=== PATIENT | male | born 1980 | race Caucasian/White ===

== ENCOUNTER → 2017-10-26 10:10 | Outpatient (CLI) | payer MEDICAID ==
[~2017-10-26 10:10] MED LIST: BUPRENORPHIN-N1 EACH SL; PEPCID40 MG PO
[2017-11-02 07:35] VITALS: BMI 33.1
== END | disposition home or self-care (01) ==
LOC: D.CT 10:10
DX: S93.325A Dislocation of tarsometatarsal joint of left foot, initial encounter (principal); X58.XXXA Exposure to other specified factors, initial encounter

== ENCOUNTER 2017-11-02 06:47 | Day surgery (SDC) | payer SELFPAY ==
[2017-11-01 11:31] VITALS: BP 123/75; BMI 33.1
[~2017-11-02] VITALS: Ht 167.6 cm; Wt 93.0 kg
[2017-11-02 07:35] VITALS: BP 115/63; Ht 167.6 cm; Wt 93.0 kg
== END 2017-11-02 12:15 | disposition home or self-care (01) ==
LOC: D.OPS 06:47
DX: S93.325A Dislocation of tarsometatarsal joint of left foot, initial encounter (principal); Z01.812 Encounter for preprocedural laboratory examination